=== PATIENT | male | born 1970 | race Two or more races ===

== ENCOUNTER 2024-07-31 00:13 | Emergency (ER) | payer MEDICAID, OTHER ==
[~2024-07-31] VITALS: Ht 172.7 cm; Wt 75.0 kg
[2024-07-31] MEDS ORDERED: SODIUM BICARB 8.4% 50Meq/50ml SYR INJ IV ONE (00:14)
[2024-07-31 00:16] VITALS: BP 0/0; PULSE 0; RESP 0; TEMP 94.6; O2SAT 0
--- NOTE | 2024-07-31 00:34 | ED.PDOC ---
CPR-HPI HPI Comments 54-year-old male who came to ER via EMS in cardiac arrest. Per EMS, patient was picked up at home where he was found unresponsive. Patient has no medical problems. Patient was last seen normal 20 minutes ago by his before she went to the bathroom. As she returned, she saw the patient laying unresponsive at the bed with a syringe at his side. Possible overdose on methamphetamines. Upon arrival paramedics patient was unresponsive, apneic, with a blood sugar of 21. CPR initiated immediately, bagging done, fluids given, was given 4 mg of Narcan, 3 D10 Water, 1 glucagon, 1 sodium bicarb, and 7 epinephrine prior to arrival to the ER. Patient remained asystole the entire time. Total downtime 1 hour 15 minutes prior to arrival to the ER. Temperature of 94 F rectally. Chief Complaint: CPR Time Seen by MD: 00:08 Reviewed Notes: Nurses Notes Information Source: Emergency Med Personnel Mode of Arrival: EMS Timing: Minutes Duration: Down time prior EMS: (15 minutes), Total time prior hopital: (1 hour 15 minutes) Onset: Unknown Available Hx: Drug Overdose Inital rhythm: Asystole Treatment: CPR, IV, Epinephrine Response: No response Past Medical History PAST MEDICAL HISTORY: Unobtainable Surgical History: Unobtainable Family History Family History: Unobtainable Social History Smoker: Unobtainable Alcohol: Unobtainable Drugs: Unobtainable Lives In: Home Unable to Obtain due to: Medical Urgency, Intubated Physical Exam General Appearance: Severe Distress HEENT: Normal ENT Inspection, Pharynx Normal, TMs Normal, Other (Pupils fixed and dilated unresponsive to light) Neck: Full Range of Motion, Non-Tender, Normal, Normal Inspection Respiratory: Chest Non-Tender, Lungs Clear, No Accessory Muscle Use, Normal Breath Sounds, Respiratory Distress, Other (Apneic; patient brought back to the emergency room with bag valve mask respiration) Cardiovascular: No Edema, No JVD, No Murmur, No Gallop, Other (No S1 or S2) Breast Exam: Deferred Gastrointestinal: No Organomegaly, Non Tender, No Pulsatile Mass, Normal Bowel Sounds, Soft Genitalia: Deferred Pelvic: Deferred Rectal: Deferred Extremities: No calf tenderness, Normal capillary refill, Normal inspection, Normal range of motion, Non-tender, No pedal edema Musculoskeletal : Apperance: Normal Neurologic: Alert, sleeping room cleaner II-XII nml as Tested, No Motor Deficits, Normal Affect, Normal Mood, No Sensory Deficits Cerebellar Function: Normal Reflexes: Normal Skin: Dry, Normal Color, Warm Lymphatic: No Adenopathy Was a procedure done? Was a procedure done?: Yes Sedation Sedation?: No Intubation Indication: Altered Mental Status, Airway Protection Prep: Preoxygenation Pretreated with: Nothing Medicated with: Nothing Intubation Approach: Orotracheal Intubation size: cm (8) Informed consent obtained: No Risks/benefits/alt described: No Differential Dx CPR Differential Diagnosis: Cardiopulmonary arrest, Heart Block, Myocardial Infarction, Other (Drug overdose) X-Ray, Labs, Meds, VS ACLS protocol performed without success. See run sheet for further information. The patient at 12:12 a.m.. Time of 1ST Reevaluation: 00:10 Reevaluation 1ST: Unchanged Patient Education/Counseling: Pt Unresponsive Family Education/Counseling: No Family Present Departure 1 Departure Time of Disposition: 12:12 Impression: Primary Impression: Cardiopulmonary arrest Additional Impression: Overdose Disposition: 20 Condition: Other () Discharged With: Self Critical Care Note Critical Care Time?: No Heart Score Heart Score: Heart Score Response (Comments) Value History N/A 0 EKG N/A 0 Age N/A 0 Risk Factors N/A 0 Troponin N/A 0 Total 0 Stability Stability form required: No I personally scribed for ANKITA ALVAREZ MD ([email or web address]) on 07/31/24 at 00:34. Electronically submitted by Giorgi Contreras ([email or web address]). ANKITA ALAVREZ MD Jul 31, 2024 00:34
--- NOTE | 2024-07-31 01:42 | RESUS ---
CODE BLUE ASSESSSMENT History of Events History of Events: Pt arrived with manual CPR in progress. Per EMS, pt was found at approximately 2245 by at home unresponsive in bed with needle syringe next to him. Initial rhythm asystole and remained asystole throughout transport. IO to L distal prox and 18g IV to RAC; Narcan x4, D10 x3amps, 1 glucagon, 1 amp Bicarb, and Epi x7 given en route to ER. Initial blood sugar 21. Last epi approximately 1min prior to arrival into ER. Initial Information Date: Jul 31, 2024 Time: 00:06 Location of Arrest: In Field Arrest Witnessed: No CPR started by whom: EMS Last seen well: 2219 Pre-Hospital Care: ACLS Type of arrest: Cardiac, Respiratory, Adult, Unwitnessed Spontaneous Respirations: No Pulse Present: No Monitoring: ECG, Pulse Oximetry, Telemetry Crash Cart Opened and Supplies: Yes Airway Ventilation Breathing at Onset: Assisted Oxygen Delivery Method: Ambu-Bag Time of first Assisted Ventila: 00:06 Artificial Ventilation: Bag/Mask Intubation Time: 00:11 Intubation Size: 8.0 cuffed Intubated by: RT Kristi Intubation Attempts: 1 Intubated orally: Yes Intubated Nasaly: No Tube secured at: 24 Cricoid pressure done: Yes CO2 indicator used: Yes Confirmation: Auscultation, Exhaled CO2 Suctioning (Oral/Tracheal): Yes (Emesis present) Circulation Circulation #1: Time: 00:07 Pulse Rate (adult): 0 Blood Pressure Systolic: 0 Blood Pressure Diastolic: 0 Temperature (Fahrenheit): 94.6 (F; rectal) Circulation #2: Time: 00:10 Pulse Rate (adult): 0 Blood Pressure Systolic: 0 Blood Pressure Diastolic: 0 Circulation #3: Time: 00:12 Pulse Rate (adult): 0 Blood Pressure Systolic: 0 Blood Pressure Diastolic: 0 Circulation Comment: TOD Medications & Response Medications and Responses : Medication Time: 00:09 ADULT Medications Given ADULT: Epinephrine 1 mg Route of Administration: IV Heart Rate: 0 EKG Rhythm: Asystole Blood Pressure Systolic: 0 Blood Pressure Diastolic: 0 Respiratory Rate: 0 EKG Rhythm: Asystole Procedure - NG/OG Tube Procedure - NG/OG Tube : Gastric Content Description: Henry Nurses Notes [place] Coma Scale Eye Opening: None (1) [place] Coma Scale Verbal: None (1) [place] Coma Scale Motor: None (1) [place] Total: 3 Pupil Reaction: Non Reactive Bedside Blood Glucose: 81 Time Code Ended Time Code Ended: 00:12 Post Arrest Status: Outcome of code: Unsuccessful Patient pronounced by: Dr Escobedo Time patient pronounced: 00:13 Family notified: Yes Code Team Present: Dr Escobedo - ER MD; Solange Epstein RN - ER Charge; Gifty Dick RN - Babcock Tester; Ga Duron RT; Ryan Epstein, RN; Charlotte Wallis, RN; Ismael Wallis COLD WORK OPERATOR; Emeterio Castellanos, ERT; Chapito Whiplpe, Gifty Lerma Jul 31, 2024 01:42
== END 2024-07-31 00:41 ==
LOC: ER 00:13 → EDBD 00:13 → ER 00:41
DX: I46.9 Cardiac arrest, cause unspecified (principal); T50.991A Poisoning by other drugs, medicaments and biological substances, accidental (unintentional), initial encounter; Y92.89 Other specified places as the place of occurrence of the external cause
CPT/HCPCS: 31500; 92950; 99285; J0171